=== PATIENT | male | born 1975 | race American Indian/Alaskan Native ===

== ENCOUNTER 2018-02-10 10:16 | Emergency (ER) | payer MEDICAID, OTHER ==
[2018-02-10] MEDS ORDERED: Lidocaine 5% Patch TD STA (10:46)
--- NOTE | 2018-02-10 11:17 | C.PDOC ---
History Of Present Illness 42 y/o male presents to the ER complaining of neck pain which has been present for the past 2 months. Patient reports that the pain radiates down his right shoulder. He describes the pain as "shooting".Patient states that the pain is constant. Time Seen by Provider: 02/10/18 10:36 Chief Complaint (Nursing): Upper Extremity Problem/Injury History Per: Patient History/Exam Limitations: no limitations Onset/Duration Of Symptoms: Days Current Symptoms Are (Timing): Still Present Severity: Moderate Past Medical History Reviewed: Historical Data, Nursing Documentation, Vital Signs Vital Signs: Last Vital Signs Temp 98.0 F 02/10/18 12:17 Pulse 60 02/10/18 12:17 Resp 18 02/10/18 12:17 BP 122/78 02/10/18 12:17 Pulse Ox 99 02/10/18 12:42 - Medical History PMH: No Chronic Diseases Surgical History: No Surg Hx - [facility] Procedures INJECT/INFUSE NEC (06/10/06) LID RECONSTRUCTION NOS (02/21/06) OTHER SKIN & SUBQ I D (06/10/06) TETANUS TOXOID ADMINIST (02/21/06) Family History: States: No Known Family Hx - Social History Hx Tobacco Use: No Hx Alcohol Use: No Hx Substance Use: Yes - Immunization History Hx Tetanus Toxoid Vaccination: No Hx Influenza Vaccination: No Hx Pneumococcal Vaccination: No Review Of Systems Except As Marked, All Systems Reviewed And Found Negative. Constitutional: Negative for: Fever, Chills Musculoskeletal: Positive for: Neck Pain Neurological: Negative for: Weakness, Numbness Physical Exam - Physical Exam Appears: Non-toxic, No Acute Distress Skin: Normal Color, Warm Head: Atraumatic, Normacephalic Eye(s): bilateral: Normal Inspection Nose: Normal Oral Mucosa: Moist Neck: Supple, Other (muscle spasms along the posterior angle of SCM muscle) Chest: Symmetrical Cardiovascular: Rhythm Regular Respiratory: Normal Breath Sounds, No Accessory Muscle Use, No Rales, No Rhonchi , No Wheezing Neurological/Psych: Oriented x3, Normal Speech, Normal Motor, Normal Sensation ED Course And Treatment O2 Sat by Pulse Oximetry: 99 (RA) Pulse Ox Interpretation: Normal Medical Decision Making Medical Decision Making: Plan: --Motrin 600 mg PO --Flexeril 10 mg PO --Tylenol 975 mg PO --Lidoderm Patch Disposition Counseled Patient/Family Regarding: Diagnosis, Need For Followup, Rx Given - Disposition Referrals: [facility] [Outside] Disposition: HOME/ ROUTINE Disposition Time: 12:05 Condition: SERIOUS Prescriptions: Cyclobenzaprine [Cyclobenzaprine HCl] 10 mg PO TID #15 tab Ibuprofen [Motrin] 600 mg PO TID #15 tab traMADol/Acetaminophen [Ultracet 37.5/325 mg] 1 tab PO TID PRN #15 tab PRN Reason: pain Instructions: Muscle Spasms (DC) Forms: [facility] (Azeri), General Discharge Instructions - Clinical Impression Clinical Impression: Muscle spasm - Scribe Statement The provider has reviewed the documentation as recorded by the Jace Stark Provider Attestation: All medical record entries made by the Alexibjustin were at my direction and personally dictated by me. I have reviewed the chart and agree that the record accurately reflects my personal performance of the history, physical exam, medical decision making, and the department course for this patient. I have also personally directed, reviewed, and agree with the discharge instructions and disposition.
[2018-02-10] MEDS ORDERED: Lidocaine 5% Patch TD ONE (11:26)
[2018-02-10 12:19] VITALS: BP 122/78; PULSE 60; RESP 18; TEMP 98
[2018-02-10 12:43] VITALS: O2SAT 99
== END 2018-02-10 12:19 | disposition home or self-care (01) ==
LOC: C.ER 10:16
DX: M62.838 Other muscle spasm (principal)

== ENCOUNTER 2018-05-13 09:36 | Emergency (ER) | payer MEDICAID ==
[2018-05-13 09:39] VITALS: BMI 22.8
--- NOTE | 2018-05-13 10:33 | C.PDOC ---
History Of Present Illness 42 year old male presents to the ED complaining of right wrist pain since yesterday. Patient states he was playing basketball yesterday when he tripped and fell onto his bilateral outstretched hands. He is now complaining of right wrist pain and swelling. Patient denies head injury or LOC, sensory changes, other injuries. Time Seen by Provider: 05/13/18 09:44 Chief Complaint (Nursing): Finger,Hand,&Wrist History Per: Patient History/Exam Limitations: no limitations Onset/Duration Of Symptoms: Days Current Symptoms Are (Timing): Still Present Quality: "Pain" Severity: Moderate Exacerbating Factor(s): Movement Past Medical History Reviewed: Historical Data, Nursing Documentation, Vital Signs Vital Signs: Last Vital Signs Temp 98.9 F 05/13/18 11:14 Pulse 60 05/13/18 11:14 Resp 20 05/13/18 11:14 BP 124/75 05/13/18 11:14 Pulse Ox 99 05/13/18 11:54 - Medical History PMH: No Chronic Diseases Surgical History: No Surg Hx - [facility] Procedures INJECT/INFUSE NEC (06/10/06) LID RECONSTRUCTION NOS (02/21/06) OTHER SKIN & SUBQ I D (06/10/06) TETANUS TOXOID ADMINIST (02/21/06) Family History: States: No Known Family Hx - Social History Hx Tobacco Use: No Hx Alcohol Use: No Hx Substance Use: Yes - Immunization History Hx Tetanus Toxoid Vaccination: No Hx Influenza Vaccination: No Hx Pneumococcal Vaccination: No Review Of Systems Constitutional: Negative for: Fever, Chills Cardiovascular: Negative for: Chest Pain Musculoskeletal: Positive for: Hand Pain (R wrist) Neurological: Negative for: Weakness, Numbness, Headache Physical Exam - Physical Exam Appears: Well, Non-toxic, No Acute Distress Skin: Normal Color, Warm, Dry Head: Atraumatic, Normacephalic Eye(s): bilateral: Normal Inspection Oral Mucosa: Moist Cardiovascular: Rhythm Regular Respiratory: Normal Breath Sounds, No Rales, No Rhonchi, No Wheezing Extremity: Normal ROM, Tenderness (R lateral wrist TTP, L wrist mildly diffusely TTP; Pain worsens with flexion of the right wrist, hand and digits are non-tender, elbow non-tender), Capillary Refill (< 2 sec all digits ), No Deformity, Swelling (mild swelling over R wrist) Pulses: Left Radial: Normal, Right Radial: Normal Neurological/Psych: Oriented x3, Normal Motor, Normal Sensation ED Course And Treatment O2 Sat by Pulse Oximetry: 99 (RA) Pulse Ox Interpretation: Normal - Other Rad B/L wrist x-ray X-Ray: Viewed By Me, Read By Radiologist Interpretation: Comminuted mid scaphoid fracture with displacement of several tiny fragments. R elbow x-ray X-Ray: Viewed By Me, Read By Radiologist Interpretation: Unremarkable radiographs of the right elbow. Progress Note: X-rays of bilateral wrists and right elbow ordered and reviewed. Patient givne PO tylenol. Xray of right wrist shows scaphoid fx. Patient placed in thumb spica splint by quality tech and checked by me, (+) NV intact. Patient instructed to follow up with hand surgeon within 1 week. He understands he should return to ED if symptoms worsen. Disposition Counseled Patient/Family Regarding: Studies Performed, Diagnosis, Need For Followup, Rx Given - Disposition Referrals: Jennifer Rubio MD [Staff Provider] - [facility] [place] [Outside] Disposition: HOME/ ROUTINE Disposition Time: 10:45 Condition: STABLE Additional Instructions: FOLLOW UP WITH HAND SURGEON/ORTHOPEDICS WITHIN 1 WEEK USE PAIN MEDICATION NEEDED ELEVATE HAND/ARM MUCH POSSIBLE RETURN TO ER IF SYMPTOMS WORSEN Prescriptions: traMADol [Ultram] 50 mg PO BID PRN #15 tab PRN Reason: pain Instructions: Wrist Fracture (DC) Forms: [facility] (Greek) Print Language: BULGARIAN - POA Present On Arrival: Falls Or Trauma - Clinical Impression Clinical Impression: Nondisplaced fracture of right scaphoid bone - Scribe Statement The provider has reviewed the documentation as recorded by the Scribe (Alma Medina) Provider Attestation: All medical record entries made by the Scribe were at my direction and personally dictated by me. I have reviewed the chart and agree that the record accurately reflects my personal performance of the history, physical exam, medical decision making, and the department course for this patient. I have also personally directed, reviewed, and agree with the discharge instructions and disposition.
--- NOTE | 2018-05-13 10:46 | RAD ---
PROCEDURE: Radiographs of the right elbow. HISTORY: RIGTH ELBOW PAIN AFTER FALL COMPARISON: No prior. FINDINGS: BONES: Normal. No fracture. JOINTS: Normal. No osteoarthritis. SOFT TISSUES: Normal. JOINT EFFUSION: None. OTHER FINDINGS: None. IMPRESSION: Unremarkable radiographs of the right elbow.
--- NOTE | 2018-05-13 10:48 | RAD ---
PROCEDURE: Bilateral Wrists Radiographs. HISTORY: B/L WRIST PAIN AFTER FALL R>>L COMPARISON: None. FINDINGS: BONES: Right Carpal Bones: Comminuted mid scaphoid fracture with displacement of several very small bony fragments but not of the main fracture. No other fracture identified. Left Carpal Bones: Normal. No fracture or degenerative changes. Right Distal Radius and Ulna: No fracture or degenerative changes. Left Distal Radius and Ulna: No fracture or degenerative changes. JOINT SPACES: Right Wrist: Normal. No degenerative changes. Left Wrist: Normal. No degenerative changes. SOFT TISSUES: Right Wrist: There is bowing of the pronator fat pad indicative of a hemarthrosis. Left Wrist: Normal. OTHER FINDINGS: None. IMPRESSION: Comminuted mid scaphoid fracture with displacement of several tiny fragments.
[2018-05-13 11:16] VITALS: BP 124/75; PULSE 60; RESP 20; TEMP 98.9
[2018-05-13 11:44] VITALS: O2SAT 99
== END 2018-05-13 11:20 | disposition home or self-care (01) ==
LOC: C.ER 09:36
DX: S62.001A Unspecified fracture of navicular [scaphoid] bone of right wrist, initial encounter for closed fracture (principal); W01.0XXA Fall on same level from slipping, tripping and stumbling without subsequent striking against object, initial encounter; Y93.67 Activity, basketball